=== PATIENT | female | born 1945 | race Caucasian/White ===

== ENCOUNTER 2023-01-26 09:58 | Outpatient (CLI) | payer MEDICARE, SELFPAY ==
--- NOTE | ~2023-01-26 | XR_ITS ---
EXAMINATION: XR foot LT min 3V DATE: 01/26/2023 10:48 INDICATION: Left foot pain TECHNIQUE: Dorsoplantar, lateral, and oblique views of the left foot were obtained. COMPARISON: None. FINDINGS: The bones are osteopenic which limits the sensitivity for fracture however none is seen. Th ere is moderate osteoarthritis of multiple interphalangeal joints. The soft tissues are unremarkable. IMPRESSION: 1. No acute osseous abnormality. Reviewed, dictated and finalized at location B.
--- NOTE | ~2023-01-26 | XR_ITS ---
EXAMINATION: XR ankle LT 2V DATE: 01/26/2023 10:48 INDICATION: Left foot pain. TECHNIQUE: 2 views of left ankle were obtained. COMPARISON: None. FINDINGS: Bone alignment is normal. No fracture. Joint spaces are normal. There are enthesophytes at the posterior and plantar aspects of calcaneal tuberosity. Ankle soft tissue swelling is noted. IMPRESSION: 1. No fracture. Reviewed, dictated and finalized at location A. IMPRESSION: 1. No fracture.
[2023-01-26 10:27] LABS: Basophils Absolute Auto 0.16 K/mm3 (0.00-0.10); Basophils Percent Auto 1.5 % (0.0-1.0); Eosinophils Absolute Auto 0.27 K/mm3 (0.02-0.50); Eosinophils Percent Auto 2.6 % (1.0-6.0); Hematocrit 49.5 % (35.0-42.0); Hemoglobin 15.6 g/dL (11.7-13.8); Immature Granulocyte Absolute 0.08 K/mm3 (0.00-0.00); Immature Granulocyte Percent A 0.8 % (0.0-0.0); Immature Platelet Fraction Pct 7.5 % (1.0-7.0); Lymphocytes Absolute Auto 2.28 K/mm3 (1.10-4.50); Lymphocytes Percent Auto 21.6 % (18.0-42.0); Mean Corpuscular HGB Conc 31.5 g/dL (32.0-36.0); Mean Corpuscular Hemoglobin 28.8 pg (27.0-31.0); Mean Corpuscular Volume 91.3 fL (78.0-102.0); Mean Platelet Volume 11.3 fl (9.2-11.8); Monocytes Absolute Auto 0.65 K/mm3 (0.10-0.90); Monocytes Percent Auto 6.1 % (2.0-11.0); Neutrophils Absolute Auto 7.1 K/mm3 (1.7-7.2); Neutrophils Percent Auto 67.4 % (50.0-70.0); Platelet Count Result 557 K/mm3 (150-420); Red Blood Count 5.42 M/mm3 (4.20-5.40); Red Cell Distribution Width 14.6 % (11.6-14.4); White Blood Count 10.6 K/mm3 (4.8-10.8)
[2023-01-26 10:41] LABS: Prothrombin Time 11.4 Seconds (9.50-12.10)
[2023-01-26 10:51] LABS: Alanine Aminotransferase 12 U/L (14-59); Albumin Level 4.2 g/dL (3.4-5.0); Alkaline Phosphatase 97 U/L (46-116); Anion Gap 9 mmol/L (8-16); Aspartate Amino Transferase 13 U/L (15-37); Bilirubin,Total 0.5 mg/dL (0.00-1.00); Blood Urea Nitrogen 37 mg/dL (7-18); Calcium 9.4 mg/dL (8.5-10.1); Carbon Dioxide 29 mmol/L (21-32); Chloride 103 mmol/L (98-108); Cholesterol 131 mg/dL (0-200); Estimated Glomerular Filt Rate 49; Glucose 107 mg/dL (70-99); HDL Direct 46 mg/dL (40-60); LDL Cholesterol Calculated 67 mg/dL (<130); Osmolality Calculated 300 mOsm/kg (285-295); Potassium 4.9 mmol/L (3.5-5.1); Sodium 141 mmol/L (136-145); Total Protein 7.3 g/dL (6.4-8.2); Triglycerides 89 mg/dL (0-150); Uric Acid 7.1 mg/dL (2.6-6.0)
[2023-01-26 11:25] LABS: Thyroid Stimulating Hormone 1.57 uIU/mL (0.36-3.74)
== END 2023-01-26 09:59 | disposition home or self-care (01) ==
LOC: CHSIMG 10:04
PROVIDERS: PCP Nurse Practitioner Family; Visit Provider Nurse Practitioner Family
DX: M79.672 Pain in left foot (principal); I10 Essential (primary) hypertension
CPT/HCPCS: 36415; 73600; 73630; 80053; 80061; 84443; 84550; 85025; 85055; 85610

== ENCOUNTER 2023-01-30 12:03 | Outpatient (CLI) | payer MEDICARE, SELFPAY ==
--- NOTE | ~2023-01-30 | US_ITS ---
EXAMINATION: US arterial ankle brachial ind DATE: 01/30/2023 13:00 INDICATION: Peripheral vascular disease. TECHNIQUE: Segmental pressures and plethysmographic and Doppler waveforms of the brachial and lower e xtremity arteries were obtained. COMPARISON: None. FINDINGS: Right and left brachial artery pressures of 154 mm Hg and 148 mm Hg, respectively, are concordant (no rmal difference <= 30 mmHg). The right ankle-brachial index (AKASH) is 0.78 (normal >= 0.9-1.0). The right great toe-brachial index (TBI) is 0.49 (normal >= 0.65). Arterial Doppler waveforms are biphasic at the ankle. The left AKASH is 0.43. The left TBI is not measured. Arterial Doppler waveforms are monophasic at the ankle. IMPRESSION: 1. Mildly decreased right AKASH and severely decreased left AKASH, consistent with arterial occlusive dis ease. Reviewed, dictated and finalized at location A. IMPRESSION: 1. Mildly decreased right AKASH and severely decreased left AKASH, consistent with arterial occlusive disease.
--- NOTE | ~2023-01-30 | US_ITS ---
EXAMINATION: US venous doppler [facility] DATE: 01/30/2023 12:59 INDICATION: Left calf swelling. Chronic peripheral venous insufficiency. TECHNIQUE: Grayscale ultrasound images without and with compression and Doppler ultrasound images of the left lower extremity veins were obtained. COMPARISON: None. FINDINGS: The visualized portions of left common femoral vein, profunda (deep) femoral vein, femoral vein, popl iteal vein, peroneal veins, posterior tibial veins, and greater saphenous vein outflow are patent. IMPRESSION: 1. No deep venous thrombosis. Reviewed, dictated and finalized at location A.
== END 2023-01-30 12:04 | disposition home or self-care (01) ==
LOC: CHSIMG 12:04
PROVIDERS: PCP Nurse Practitioner Family; Visit Provider Nurse Practitioner Family
DX: I87.2 Venous insufficiency (chronic) (peripheral) (principal); M79.662 Pain in left lower leg; M79.672 Pain in left foot; R22.42 Localized swelling, mass and lump, left lower limb; I10 Essential (primary) hypertension; I73.9 Peripheral vascular disease, unspecified
CPT/HCPCS: 93922; 93971

== ENCOUNTER 2023-05-11 10:26 | Outpatient (CLI) | payer MEDICARE, SELFPAY ==
[2023-05-11 10:39] LABS: Basophils Absolute Auto 0.11 K/mm3 (0.00-0.10); Eosinophils Absolute Auto 0.32 K/mm3 (0.02-0.50); Hematocrit 45.6 % (35.0-42.0); Hemoglobin 14.3 g/dL (11.7-13.8); Immature Granulocyte Absolute 0.06 K/mm3 (0.00-0.00); Immature Granulocyte Percent A 0.6 % (0.0-0.0); Lymphocytes Absolute Auto 2.25 K/mm3 (1.10-4.50); Lymphocytes Percent Auto 20.9 % (18.0-42.0); Mean Corpuscular HGB Conc 31.4 g/dL (32.0-36.0); Mean Corpuscular Hemoglobin 27.9 pg (27.0-31.0); Mean Corpuscular Volume 88.9 fL (78.0-102.0); Mean Platelet Volume 10.9 fl (9.2-11.8); Monocytes Absolute Auto 0.77 K/mm3 (0.10-0.90); Monocytes Percent Auto 7.2 % (2.0-11.0); Neutrophils Absolute Auto 7.2 K/mm3 (1.7-7.2); Neutrophils Percent Auto 67.3 % (50.0-70.0); Platelet Count Result 633 K/mm3 (150-420); Red Blood Count 5.13 M/mm3 (4.20-5.40); Red Cell Distribution Width 18.1 % (11.6-14.4); White Blood Count 10.8 K/mm3 (4.8-10.8)
[2023-05-11 11:00] LABS: Alanine Aminotransferase 46 U/L (14-59); Albumin Level 4.1 g/dL (3.4-5.0); Alkaline Phosphatase 140 U/L (46-116); Anion Gap 5 mmol/L (8-16); Aspartate Amino Transferase 21 U/L (15-37); Blood Urea Nitrogen 12 mg/dL (7-18); Calcium 9.4 mg/dL (8.5-10.1); Carbon Dioxide 34 mmol/L (21-32); Chloride 104 mmol/L (98-108); Estimated Glomerular Filt Rate 57; Glucose 118 mg/dL (70-99); Osmolality Calculated 296 mOsm/kg (285-295); Potassium 4.7 mmol/L (3.5-5.1); Sodium 143 mmol/L (136-145); Total Protein 6.9 g/dL (6.4-8.2); Uric Acid 5.5 mg/dL (2.6-6.0)
[2023-05-11 13:17] LABS: Hemoglobin A1C 6.3 % (<5.7)
== END 2023-05-11 10:27 | disposition home or self-care (01) ==
PROVIDERS: PCP Nurse Practitioner Family; Visit Provider Nurse Practitioner Family
DX: R73.01 Impaired fasting glucose (principal); M10.9 Gout, unspecified; I10 Essential (primary) hypertension; I77.9 Disorder of arteries and arterioles, unspecified
CPT/HCPCS: 36415; 80053; 83036; 84550; 85025; 85055

== ENCOUNTER 2024-02-17 04:07 | Emergency (ER) | payer MEDICARE, OTHER, SELFPAY ==
[2024-02-17 04:07] VITALS: BP 181/47; PULSE 76; RESP 18; TEMP 36.4; O2SAT 95
--- NOTE | 2024-02-17 04:22 | PC.NURSE ---
Dr Atkins at the bedside assessing wound to top of right foot
--- NOTE | 2024-02-17 04:30 | ED.LOWEXIN ---
HPI - Extremity Injury (Lower) General Chief Complaint: Extremity Injury, Lower Stated Complaint: vericose vein bleeding Time Seen by Provider: 02/17/24 04:17 Source: patient Mode of arrival: ambulatory Limitations: no limitations History of Present Illness HPI Narrative: 78-year-old female, smoker with a history of hypertension, dyslipidemia, gout presents to the ED with -- profuse bleeding from a varicose vein on the right foot. She accidentally scratched it 1 hour ago and started profusely bleeding. No other complaints. MD complaint: other ( Scratched a varicose vein) Onset (ago): hour(s) ( 1 hour ago) Place: home Relieving factors: nothing Exacerbating factors: nothing Other symptoms: none Related Data Allergies Allergy/AdvReac Type Severity Reaction Status Date / Time iodine Allergy Intermediate itching, Verified 05/30/23 14:58 rash latex Allergy Intermediate itching, Verified 05/30/23 14:58 rash nickel Allergy Intermediate itch Verified 05/30/23 14:58 wool Allergy Intermediate itching Verified 05/30/23 14:58 Review of Systems Review of Systems: All systems reviewed & are unremarkable except as noted in HPI and below Constitutional: Constitutional: Reports as per HPI and Reports no additional constitutional complaints Eyes: Eyes: Reports as per HPI and Reports no additional eye complaints ENT: Reports system reviewed and no additional complaints, except as documented and Reports as per HPI Cardiovascular: Cardiovascular: Reports as per HPI and Reports no additional cardiovascular complaints Respiratory: Respiratory: Reports as per HPI and Reports no additional respiratory complaints Gastrointestinal: Gastrointestinal: Reports no additional gastrointestinal complaints Genitourinary: Genitourinary: Reports no additional female genitourinary complaints and Reports as per HPI Musculoskeletal: Musculoskeletal: Reports no additional musculoskeletal complaints and Reports as per HPI Integumentary/Breasts: Comments: bleeding from varicose vein on the right foot Neurologic: Reports system reviewed and no additional complaints, except as documented Psychiatric: Psychiatric: Reports no additional psychiatric complaints and Reports as per HPI Endocrine: Endocrine: Reports no additional endocrine complaints and Reports as per HPI Hematologic/Lymphatic: Hematologic/Lymphatic: Reports no additional hematologic/lymphatic complaints and Reports as per HPI Allergic/Immunologic: Allergic/Immunologic: Reports no additional allergic/immunologic complaints and Reports as per HPI [facility] Past Medical History Medical History Dyslipidemia Elevated blood pressure reading Surgical History Surgical History H/O: section History of hysterectomy Social History Social History Smoking packs per day: 1 Smoking cigarettes per day: 20.0 Years smoked: 52 Smoking pack-years: 52.00 Smoking status: Former smoker Alcohol intake: current Alcohol use details: social Substance use: never Substance use type: does not use Lack of Transportation: No Lack of Food: Never True Current Housing: I Have Housing Concerned About Future Housing: No Difficulty Paying Gas/Electric Bills: No Difficulty Paying for Meds: No Currently Unemployed: No Education: High School Diploma/GED Difficulty w/ Childcare or Family Care: No Living arrangements: alone Occupation/Education: retired Gender identity (if verbalized by the patient): Female Exam Const: General: no acute distress Orientation/consciousness: patient oriented x3 HENMT: Head: normal to inspection Ears: external ears normal Face/Nose/Sinus: Normal external nose present Face and sinus: normal facial exam Mouth: Yes Normal oral and palatal mucosa present Th
[2024-02-17] MEDS: SILVER NITRATE (*SP) STICK 1 EACH TOPICAL (04:34)
[2024-02-17] MEDS: SILVER NITRATE (*SP) STICK 1 EACH (04:34)
--- NOTE | 2024-02-17 04:39 | PC.NURSE ---
iain Garcia, at the bedside cleaning dried blood off right foot.
--- NOTE | 2024-02-17 05:11 | PC.NURSE ---
bandaid placed over wound to top of right foot.
[2024-02-17 05:13] VITALS: BP 176/52; PULSE 78; RESP 18; O2SAT 96
== END 2024-02-17 05:13 | disposition home or self-care (01) ==
LOC: CHSED 04:50
PROVIDERS: Emergency Provider Internal Medicine Critical Care Medicine; PCP Nurse Practitioner Family
DX: I83.891 Varicose veins of right lower extremity with other complications (principal); I10 Essential (primary) hypertension; E11.9 Type 2 diabetes mellitus without complications; Z87.891 Personal history of nicotine dependence
CPT/HCPCS: 12001; 99283

== ENCOUNTER 2024-09-16 10:04 | Outpatient (CLI) | payer MEDICARE, SELFPAY ==
[2024-09-16 10:28] LABS: Basophils Absolute Auto 0.18 K/mm3 (0.00-0.10); Basophils Percent Auto 1.2 % (0.0-1.0); Eosinophils Absolute Auto 0.41 K/mm3 (0.02-0.50); Eosinophils Percent Auto 2.8 % (1.0-6.0); Hematocrit 57.9 % (35.0-42.0); Hemoglobin 17.5 g/dL (11.7-13.8); Immature Granulocyte Absolute 0.12 K/mm3 (0.00-0.00); Immature Granulocyte Percent A 0.8 % (0.0-0.0); Lymphocytes Absolute Auto 2.48 K/mm3 (1.10-4.50); Lymphocytes Percent Auto 16.7 % (18.0-42.0); Mean Corpuscular HGB Conc 30.2 g/dL (32-36); Mean Corpuscular Hemoglobin 24.3 pg (27.0-31.0); Mean Corpuscular Volume 80.5 fL (78.0-102.0); Mean Platelet Volume 10.9 fl (9.2-11.8); Monocytes Absolute Auto 0.84 K/mm3 (0.10-0.90); Monocytes Percent Auto 5.7 % (2.0-11.0); Neutrophils Absolute Auto 10.83 K/mm3 (1.70-7.20); Neutrophils Percent Auto 72.8 % (50.0-70.0); Red Blood Count 7.19 M/mm3 (4.20-5.40); Red Cell Distribution Width 20.3 % (11.6-14.4); White Blood Count 14.9 K/mm3 (4.8-10.8)
[2024-09-16 10:43] LABS: Platelet Count Result 767 K/mm3 (150-420)
[2024-09-16 11:09] LABS: Alanine Aminotransferase 33 U/L (14-59); Albumin Level 4.2 g/dL (3.4-5.0); Alkaline Phosphatase 137 U/L (46-116); Anion Gap 10 mmol/L (4-12); Aspartate Amino Transferase 24 U/L (15-37); Blood Urea Nitrogen 35 mg/dL (7-18); Calcium 9.6 mg/dL (8.5-10.1); Carbon Dioxide 30 mmol/L (21-32); Chloride 105 mmol/L (98-108); Cholesterol 89 mg/dL (0-200); Estimated Glomerular Filt Rate 47; Glucose 110 mg/dL (70-99); HDL Direct 56 mg/dL (40-60); LDL Cholesterol Calculated 24 mg/dL (<130); Osmolality Calculated 309 mOsm/kg (285-295); Potassium 5.4 mmol/L (3.5-5.1); Sodium 145 mmol/L (136-145); Thyroid Stimulating Hormone 1.94 uIU/mL (0.36-3.74); Total Protein 7.5 g/dL (6.4-8.2); Triglycerides 47 mg/dL (0-150)
--- OUTSIDE RECORDS SUMMARY | 2024-09-16 11:16 | XMS_ITS | Clinical Summary ---
Author Organization [facility] Address [address] [place] [address] Care Team Providers Care Sonogram Technician Name Role Phone Felix Fernando GARCIA Primary Care Provider [phone] Allergies No known active allergies Medications atorvastatin (LIPITOR) 80 mg tablet Take 1 tablet (80 mg total) by mouth nightly at bedtime 02/28/2023 Active clopidogreL (PLAVIX) 75 mg tablet Take 1 tablet (75 mg total) by mouth daily 02/28/2023 Active hydroCHLOROthia zide (HYDRODIURIL) 25 mg tablet Take 1 tablet (25 mg total) by mouth daily 03/20/2023 Active losartan (COZAAR) 50 mg tablet Take 1 tablet (50 mg total) by mouth 2 (two) times a day 02/13/2023 Active Active Problems Problem Noted Date Diagnosed Date Peripheral vascular disease, unspecified 023 Assessment & Plan (04/20/2023 7:55 AM OPERATIONS SUPERVISOR 2ND SHIFT): Overall asymptomatic with no evidence of claudication, rest pain or wounds. Needs no further workup. Assessment & Plan (03/23/2023 1:47 PM CDT): Impression: Patient denies any symptoms of claudication, ischemic rest pain or ulcerations. Patient underwent a lower extremity arterial Doppler an outside facility which reports biphasic waveforms to the right lower extremity and monophasic waveforms to left lower extremity. Left lower extremity is warm, well perfused with nonpalpable pulses. Plan: Recommend patient for follow-up in 2-3 weeks for re-evaluation with arterial Doppler. Primary hypertension 03/23/2023 Assessment & Plan (04/20/2023 7:55 AM OPERATIONS SUPERVISOR 2ND SHIFT): Stable continue hydrochlorothiazide 25 mg. Assessment & Plan (03/23/2023 1:46 PM CDT): Impression: Chronic stable. Plan: Continue hydrochlorothiazide and losartan Mixed hyperlipidemia 03/23/2023 Assessment & Plan (04/20/2023 7:55 AM OPERATIONS SUPERVISOR 2ND SHIFT): Stable continue Lipitor 80 mg. Assessment & Plan (03/23/2023 1:47 PM CDT): Impression: Chronic stable. Plan: Continue Lipitor Edema of left lower extremity 03/23/2023 Assessment & Plan (04/20/2023 7:55 AM OPERATIONS SUPERVISOR 2ND SHIFT): Strongly encouraged compression therapy. I have written a prescription for new compression stockings. Assessment & Plan (03/23/2023 1:49 PM CDT): Impression: Patient has edema to the left lower extremity with erythema extending from her ankle to mid anterior calf. Patient complains of pain on palpation. No open ulcerations are noted. Plan: Recommend compression therapy and leg elevation for edema control. -oral Bactrim sent to patient's pharmacy for treatment of soft tissue infection. Instructed patient to take medication with food as this may cause GI upset. Instructed patient to take oral antibiotics until completed. Patient voices understanding. Social History Tobacco Use Types Packs/Day Years Used Date Smoking Tobacco: Former Cigarettes 0.8 60 Tobacco Cessation:Counseling Given: No Personal Safety Answer Date Recorded Getting School Help Needed Not on file 08/12 Comments Unknown Sex and Gender Information Value Date Recorded Sex Assigned at Not on file Legal Sex Female 2:23 PM CDT Gender Identity Female 02/16/2023 12:55 PM CDT Sexual Orientation Not on file Obstetrics History Last Filed Vital Signs Vital Sign Reading Time Taken Comments Blood Pressure - - Pulse - - Temperature - - Respiratory Rate - - Oxygen Saturation - - Inhaled Oxygen Concentration - - Weight 68 kg (150 lb) 04/18/2023 10:00 AM OPERATIONS SUPERVISOR 2ND SHIFT Height 154.9 cm (5' 1 ) 04/18/2023 10:00 AM OPERATIONS SUPERVISOR 2ND SHIFT Body Mass Index 28.34 04/18/2023 10:00 AM OPERATIONS SUPERVISOR 2ND SHIFT Plan of Treatment Health Maintenance Due Date Last Done Comments Depression Screening 1946 Fall Risk Assessment 1945 Hepatitis C Screening 1946 Osteoporosis Screening-Bone Density Scan 1946 DTaP/Tdap/Td Vaccine (1 - Tdap) 1957 Hepatitis B Screening 1964 Pneumococcal vaccine 65+ (1 of 1 - PCV) 1996 Zoster Vaccine (1 of 2) 1996 Well Visit 65+ 2011 Influenza Vaccine (#1) 2024 Insurance [place] [id number] [place] [id number] Care Teams Sonogram Technician Relationship Specialty Start Date End Date Fernando Washington JOSE [address] [place] [address] PCP - General Nurse Practitioner 02/09/23
--- OUTSIDE RECORDS SUMMARY | 2024-09-16 11:16 | XMS_ITS | Referral Summary ---
Author Organization [facility] Address [address] [place] [address] Care Team Providers Care Farmworkers Name Role Phone Felix Fernando GARCIA Primary Care Provider [phone] Allergies No known active allergies Medications atorvastatin [...] 023 Assessment & Plan (04/20/2023 7:55 AM MAINTENANCE PORTER): Overall asymptomatic with no evidence of claudication, [...] 03/23/2023 Assessment & Plan (04/20/2023 7:55 AM MAINTENANCE PORTER): Stable continue hydrochlorothiazide 25 mg. Assessment & Plan (03/23/2023 1:46 PM CDT): Impression: Chronic stable. Plan: Continue hydrochlorothiazide and losartan Mixed hyperlipidemia 03/23/2023 Assessment & Plan (04/20/2023 7:55 AM MAINTENANCE PORTER): Stable continue Lipitor 80 mg. Assessment & Plan (03/23/2023 1:47 PM CDT): Impression: Chronic stable. Plan: Continue Lipitor Edema of left lower extremity 03/23/2023 Assessment & Plan (04/20/2023 7:55 AM MAINTENANCE PORTER): Strongly encouraged compression therapy. I have written [...] PM CDT Sexual Orientation Not on file Last Filed Vital Signs Vital Sign Reading Time Taken Comments Blood Pressure - - Pulse - - Temperature - - Respiratory Rate - - Oxygen Saturation - - Inhaled Oxygen Concentration - - Weight 68 kg (150 lb) 04/18/2023 10:00 AM MAINTENANCE PORTER Height 154.9 cm (5' 1 ) 04/18/2023 10:00 AM MAINTENANCE PORTER Body Mass Index 28.34 04/18/2023 10:00 AM MAINTENANCE PORTER Plan of Treatment Not on file Insurance MEDICARE ADVANTAGE MEDICARE ADVANTAGE [place] [id number] Care Teams Farmworkers Relationship Specialty Start Date End Date Fernando Washington NP [address] [place] [address] PCP - General Nurse Practitioner 02/09/23
[2024-09-16 15:50] LABS: Uric Acid 7.2 mg/dL (2.6-6.0)
== END 2024-09-16 10:05 | disposition home or self-care (01) ==
PROVIDERS: PCP Nurse Practitioner Family; Visit Provider Nurse Practitioner Family
DX: D75.1 Secondary polycythemia (principal); Z87.891 Personal history of nicotine dependence; R73.03 Prediabetes; E78.5 Hyperlipidemia, unspecified; Z87.39 Personal history of other diseases of the musculoskeletal system and connective tissue
CPT/HCPCS: 36415; 80053; 80061; 81270; 83036; 84443; 84550; 85025

== ENCOUNTER 2024-09-19 08:31 | Outpatient (CLI) | payer MEDICARE, SELFPAY ==
--- OUTSIDE RECORDS SUMMARY | 2024-09-19 08:39 | XMS_ITS | Referral Summary ---
Author Organization [facility] Address [address] [place] [address] Care Team Providers Care Dairy Technician Name Role Phone Felix Fernando GARCIA Primary Care Provider [phone] Allergies No known active allergies Medications atorvastatin [...] 023 Assessment & Plan (04/20/2023 7:55 AM ENERGY TECHNICIAN): Overall asymptomatic with no evidence of claudication, [...] 03/23/2023 Assessment & Plan (04/20/2023 7:55 AM ENERGY TECHNICIAN): Stable continue hydrochlorothiazide 25 mg. Assessment & Plan (03/23/2023 1:46 PM CDT): Impression: Chronic stable. Plan: Continue hydrochlorothiazide and losartan Mixed hyperlipidemia 03/23/2023 Assessment & Plan (04/20/2023 7:55 AM ENERGY TECHNICIAN): Stable continue Lipitor 80 mg. Assessment & Plan (03/23/2023 1:47 PM CDT): Impression: Chronic stable. Plan: Continue Lipitor Edema of left lower extremity 03/23/2023 Assessment & Plan (04/20/2023 7:55 AM ENERGY TECHNICIAN): Strongly encouraged compression therapy. I have written [...] 68 kg (150 lb) 04/18/2023 10:00 AM ENERGY TECHNICIAN Height 154.9 cm (5' 1 ) 04/18/2023 10:00 AM ENERGY TECHNICIAN Body Mass Index 28.34 04/18/2023 10:00 AM ENERGY TECHNICIAN Plan of Treatment Not on file Insurance MEDICARE ADVANTAGE [facility] MED[facility] Address: [place] [id number] [place] [address] MEDICARE ADVANTAGE [facility] MEDICARE Address: [address] [address] [place] [id number] Care Teams Dairy Technician Relationship Specialty Start Date End Date Fernando Washington NP [address] [place] [address] PCP - General Nurse Practitioner 02/09/23
--- OUTSIDE RECORDS SUMMARY | 2024-09-19 08:39 | XMS_ITS | Clinical Summary ---
Author Organization [facility] Address [address] [place] [address] Care Team Providers Care Grid Trimmer Name Role Phone Felix Fernando GARCIA Primary Care Provider [phone] Allergies No known active allergies Medications atorvastatin [...] 023 Assessment & Plan (04/20/2023 7:55 AM GRINDER CARBON PLANT): Overall asymptomatic with no evidence of claudication, [...] 03/23/2023 Assessment & Plan (04/20/2023 7:55 AM GRINDER CARBON PLANT): Stable continue hydrochlorothiazide 25 mg. Assessment & Plan (03/23/2023 1:46 PM CDT): Impression: Chronic stable. Plan: Continue hydrochlorothiazide and losartan Mixed hyperlipidemia 03/23/2023 Assessment & Plan (04/20/2023 7:55 AM GRINDER CARBON PLANT): Stable continue Lipitor 80 mg. Assessment & Plan (03/23/2023 1:47 PM CDT): Impression: Chronic stable. Plan: Continue Lipitor Edema of left lower extremity 03/23/2023 Assessment & Plan (04/20/2023 7:55 AM GRINDER CARBON PLANT): Strongly encouraged compression therapy. I have written [...] 68 kg (150 lb) 04/18/2023 10:00 AM GRINDER CARBON PLANT Height 154.9 cm (5' 1 ) 04/18/2023 10:00 AM GRINDER CARBON PLANT Body Mass Index 28.34 04/18/2023 10:00 AM GRINDER CARBON PLANT Plan of Treatment Health Maintenance Due Date Last Done Comments Depression Screening 1946 Fall Risk Assessment 1946 Hepatitis C Screening 1946 Osteoporosis Screening-Bone Density Scan 1946 DTaP/Tdap/Td Vaccine (1 - Tdap) 1957 Hepatitis B Screening 1964 Pneumococcal vaccine 65+ (1 of 1 - PCV) 1996 Zoster Vaccine (1 of 2) 1996 Well Visit 65+ 2011 Influenza Vaccine (#1) 2024 Insurance [place] [id number] [place] [id number] Care Teams Grid Trimmer Relationship Specialty Start Date End Date Fernando Washington JOSE [address] [place] [address] PCP - General Nurse Practitioner 02/09/23
--- NOTE | 2024-09-19 08:48 | ECG_ITS ---
Test Date: 2024-09-19 09:27:22 Measurements Intervals [place] Rate: 58 P: 68 VA: 164 QRS: 52 QRSD: 94 T: 57 QT: 451 QTc: 443 Interpretive Statements SINUS BRADYCARDIA WITH OCCASIONAL SUPRAVENTRICULAR PREMATURE COMPLEXES BORDERLINE ECG No previous ECG available for comparison Electronically Signed On 09-19-2024 10:35:21 CDT by Damon Chavez D.O.
[2024-09-19 09:31] LABS: Iron 32 ug/dL (50-170); Percent Iron Saturation 8 % (12-57)
[2024-09-19 09:44] LABS: Potassium 5.4 mmol/L (3.5-5.1)
== END 2024-09-19 08:32 | disposition home or self-care (01) ==
LOC: CHSLAB 08:32
PROVIDERS: PCP Nurse Practitioner Family; Visit Provider Nurse Practitioner Family
DX: D75.1 Secondary polycythemia (principal); E87.5 Hyperkalemia; R00.1 Bradycardia, unspecified
CPT/HCPCS: 36415; 83540; 83550; 84132; 93005

== ENCOUNTER 2024-10-17 08:52 | Outpatient (CLI) | payer MEDICARE, SELFPAY ==
--- OUTSIDE RECORDS SUMMARY | 2024-10-17 08:55 | XMS_ITS | Clinical Summary ---
Author Organization [facility] Address [address] [facility] [place] [address] Care Team Providers Care Supervisor Finishing Name Role Phone Unavailable Primary Care Provider Unavailabl e Social History Tobacco Use Types Packs/Day Years Used Date Smoking Tobacco: Never Assessed Comments Unknown Sex and Gender Information Value Date Recorded Sex Assigned at Not on file Legal Sex Female 9:30 AM CDT Gender Identity Not on file Sexual Orientation Not on file Plan of Treatment Upcoming Encounters Date Type Department Care Team (Late st Contact Info) Description 10/31/2024 2:30 PM CDT Office Visit [facility] Oncology and Hematology - J[address] [facility] [address] [address] Bam Moore MD [address] [facility] [address] [place] [address] Health Maintenance Due Date Last Done Comments DTAP/TDAP/TD VACCINES (1 - Tdap) 1965 PNEUMOCOCCAL VACCINE 50+ YEARS (1 of 1 - PCV) 04/13/19 96 ZOSTER VACCINE (1 of 2) 1996 OSTEOPOROSIS SCREENING 2011 RSV VACCINE (60+ or ) (1 - 1-dose 75+ series) 2021 INFLUENZA VACCINE (#1) 2024 Insurance [facility] [id number]
--- OUTSIDE RECORDS SUMMARY | 2024-10-17 08:55 | XMS_ITS | Referral Summary ---
Author Organization [facility] Address [address] [place] [address] Care Team Providers Care Dragline Mechanic Name Role Phone Felix Fernando GARCIA Primary Care Provider [phone] Allergies No known active allergies Medications atorvastatin [...] 023 Assessment & Plan (04/20/2023 7:55 AM SOFA COVER INSPECTOR): Overall asymptomatic with no evidence of claudication, [...] 03/23/2023 Assessment & Plan (04/20/2023 7:55 AM SOFA COVER INSPECTOR): Stable continue hydrochlorothiazide 25 mg. Assessment & Plan (03/23/2023 1:46 PM CDT): Impression: Chronic stable. Plan: Continue hydrochlorothiazide and losartan Mixed hyperlipidemia 03/23/2023 Assessment & Plan (04/20/2023 7:55 AM SOFA COVER INSPECTOR): Stable continue Lipitor 80 mg. Assessment & Plan (03/23/2023 1:47 PM CDT): Impression: Chronic stable. Plan: Continue Lipitor Edema of left lower extremity 03/23/2023 Assessment & Plan (04/20/2023 7:55 AM SOFA COVER INSPECTOR): Strongly encouraged compression therapy. I have written [...] 68 kg (150 lb) 04/18/2023 10:00 AM SOFA COVER INSPECTOR Height 154.9 cm (5' 1 ) 04/18/2023 10:00 AM SOFA COVER INSPECTOR Body Mass Index 28.34 04/18/2023 10:00 AM SOFA COVER INSPECTOR Plan of Treatment Not on file Insurance MEDICARE ADVANTAGE MEDICARE ADVANTAGE [place] [id number] Care Teams Dragline Mechanic Relationship Specialty Start Date End Date Fernando Washington NP [address] [place] [address] PCP - General Nurse Practitioner 02/09/23
--- OUTSIDE RECORDS SUMMARY | 2024-10-17 08:55 | XMS_ITS | Clinical Summary ---
Author Organization [facility] Address [address] [place] [address] Care Team Providers Care Coin Purse Framer Name Role Phone Felix Fernando GARCIA Primary Care Provider [phone] Allergies No known active allergies Medications atorvastatin [...] 023 Assessment & Plan (04/20/2023 7:55 AM BLOCK MAKING MACHINE OPERATOR): Overall asymptomatic with no evidence of claudication, [...] 03/23/2023 Assessment & Plan (04/20/2023 7:55 AM BLOCK MAKING MACHINE OPERATOR): Stable continue hydrochlorothiazide 25 mg. Assessment & Plan (03/23/2023 1:46 PM CDT): Impression: Chronic stable. Plan: Continue hydrochlorothiazide and losartan Mixed hyperlipidemia 03/23/2023 Assessment & Plan (04/20/2023 7:55 AM BLOCK MAKING MACHINE OPERATOR): Stable continue Lipitor 80 mg. Assessment & Plan (03/23/2023 1:47 PM CDT): Impression: Chronic stable. Plan: Continue Lipitor Edema of left lower extremity 03/23/2023 Assessment & Plan (04/20/2023 7:55 AM BLOCK MAKING MACHINE OPERATOR): Strongly encouraged compression therapy. I have written [...] 68 kg (150 lb) 04/18/2023 10:00 AM BLOCK MAKING MACHINE OPERATOR Height 154.9 cm (5' 1 ) 04/18/2023 10:00 AM BLOCK MAKING MACHINE OPERATOR Body Mass Index 28.34 04/18/2023 10:00 AM BLOCK MAKING MACHINE OPERATOR Plan of Treatment Health Maintenance Due Date Last Done Comments Depression Screening 1946 Fall Risk Assessment 1946 Hepatitis C Screening 1946 Osteoporosis Screening-Bone Density Scan 1946 DTaP/Tdap/Td Vaccine (1 - Tdap) 1957 Hepatitis B Screening 1964 Pneumococcal vaccine 65+ (1 of 1 - PCV) 1996 Zoster Vaccine (1 of 2) 1996 Well Visit 65+ 2011 Influenza Vaccine (Season Ended) 2025 Insurance [place] [id number] [place] [id number] Care Teams Coin Purse Framer Relationship Specialty Start Date End Date Fernando Washington JOSE [address] [place] [address] PCP - General Nurse Practitioner 02/09/23
[2024-10-17 09:38] LABS: Basophils Absolute Auto 0.16 K/mm3 (0.00-0.10); Basophils Percent Auto 1.2 % (0.0-1.0); Eosinophils Absolute Auto 0.42 K/mm3 (0.02-0.50); Eosinophils Percent Auto 3.1 % (1.0-6.0); Hematocrit 57.7 % (35.0-42.0); Hemoglobin 16.9 g/dL (11.7-13.8); Immature Granulocyte Absolute 0.14 K/mm3 (0.00-0.00); Immature Platelet Fraction Pct 6.3 % (1.0-7.0); Lymphocytes Absolute Auto 2.32 K/mm3 (1.10-4.50); Lymphocytes Percent Auto 16.9 % (18.0-42.0); Mean Corpuscular HGB Conc 29.3 g/dL (32-36); Mean Corpuscular Volume 82.1 fL (78.0-102.0); Mean Platelet Volume 11.3 fl (9.2-11.8); Monocytes Absolute Auto 0.89 K/mm3 (0.10-0.90); Monocytes Percent Auto 6.5 % (2.0-11.0); Neutrophils Absolute Auto 9.83 K/mm3 (1.70-7.20); Neutrophils Percent Auto 71.3 % (50.0-70.0); Platelet Count Result 676 K/mm3 (150-420); Red Blood Count 7.03 M/mm3 (4.20-5.40); Red Cell Distribution Width 19.5 % (11.6-14.4); White Blood Count 13.8 K/mm3 (4.8-10.8)
[2024-10-17 10:24] LABS: Alanine Aminotransferase 27 U/L (6-35); Albumin Level 4.3 g/dL (3.5-5.1); Alkaline Phosphatase 111 U/L (38-126); Anion Gap 6 mmol/L (4-12); Aspartate Amino Transferase 32 U/L (14-36); Bilirubin,Total 0.9 mg/dL (0.2-1.3); Blood Urea Nitrogen 25 mg/dL (7-17); Calcium 9.3 mg/dL (8.4-10.2); Carbon Dioxide 28 mmol/L (22-30); Chloride 107 mmol/L (98-107); Estimated Glomerular Filt Rate > 60; Glucose 93 mg/dL (65-110); Osmolality Calculated 296 mOsm/kg (285-295); Potassium 5.5 mmol/L (3.4-5.0); Sodium 141 mmol/L (137-145); Total Protein 6.6 g/dL (6.3-8.2)
== END 2024-10-17 08:53 | disposition home or self-care (01) ==
LOC: CHSLAB 08:53
PROVIDERS: PCP Nurse Practitioner Family; Visit Provider Nurse Practitioner Family
DX: E87.5 Hyperkalemia (principal); R79.89 Other specified abnormal findings of blood chemistry
CPT/HCPCS: 36415; 80053; 85025; 85055

== ENCOUNTER 2024-11-07 08:49 | Outpatient (CLI) | payer MEDICARE, SELFPAY ==
--- OUTSIDE RECORDS SUMMARY | 2024-11-07 08:51 | XMS_ITS | Clinical Summary ---
Author Organization [facility] Address [address] [place] [address] Care Team Providers Care Record Changer Assembler Name Role Phone Felix Fernando GARCIA Primary Care Provider [phone] Allergies No known active allergies Medications atorvastatin [...] 023 Assessment & Plan (04/20/2023 7:55 AM SPEECH CORRECTION CONSULTANT): Overall asymptomatic with no evidence of claudication, [...] 03/23/2023 Assessment & Plan (04/20/2023 7:55 AM SPEECH CORRECTION CONSULTANT): Stable continue hydrochlorothiazide 25 mg. Assessment & Plan (03/23/2023 1:46 PM CDT): Impression: Chronic stable. Plan: Continue hydrochlorothiazide and losartan Mixed hyperlipidemia 03/23/2023 Assessment & Plan (04/20/2023 7:55 AM SPEECH CORRECTION CONSULTANT): Stable continue Lipitor 80 mg. Assessment & Plan (03/23/2023 1:47 PM CDT): Impression: Chronic stable. Plan: Continue Lipitor Edema of left lower extremity 03/23/2023 Assessment & Plan (04/20/2023 7:55 AM SPEECH CORRECTION CONSULTANT): Strongly encouraged compression therapy. I have written [...] 68 kg (150 lb) 04/18/2023 10:00 AM SPEECH CORRECTION CONSULTANT Height 154.9 cm (5' 1) 04/18/2023 10:00 AM SPEECH CORRECTION CONSULTANT Body Mass Index 28.34 04/18/2023 10:00 AM SPEECH CORRECTION CONSULTANT Plan of Treatment Health Maintenance Due Date Last Done Comments Depression Screening 1946 Fall Risk Assessment 1946 Hepatitis C Screening 1946 Osteoporosis Screening-Bone Density Scan 1946 DTaP/Tdap/Td Vaccine (1 - Tdap) 1957 Hepatitis B Screening 1964 Pneumococcal vaccine 65+ (1 of 1 - PCV) 1996 Zoster Vaccine (1 of 2) 1996 Well Visit 65+ 2011 Influenza Vaccine (Season Ended) [address] [facility] [facility] MEDICARE Address: [facility] [address] [place] [id number] [facility] MEDICARE Address: [address] [address] [place] [id number] Care Teams Record Changer Assembler Relationship Specialty Start Date End Date Fernando Washington JOSE [address] [place] [address] PCP - General Nurse Practitioner 02/09/23
--- OUTSIDE RECORDS SUMMARY | 2024-11-07 08:51 | XMS_ITS | Referral Summary ---
Author Organization [facility] Address [address] [place] [address] Care Team Providers Care Manual Lathe Machinist Name Role Phone Felix Fernando GARCIA Primary Care Provider [phone] Allergies No known active allergies Medications atorvastatin [...] 023 Assessment & Plan (04/20/2023 7:55 AM MEDICAL FRONT DESK SPECIALIST): Overall asymptomatic with no evidence of claudication, [...] 03/23/2023 Assessment & Plan (04/20/2023 7:55 AM MEDICAL FRONT DESK SPECIALIST): Stable continue hydrochlorothiazide 25 mg. Assessment & Plan (03/23/2023 1:46 PM CDT): Impression: Chronic stable. Plan: Continue hydrochlorothiazide and losartan Mixed hyperlipidemia 03/23/2023 Assessment & Plan (04/20/2023 7:55 AM MEDICAL FRONT DESK SPECIALIST): Stable continue Lipitor 80 mg. Assessment & Plan (03/23/2023 1:47 PM CDT): Impression: Chronic stable. Plan: Continue Lipitor Edema of left lower extremity 03/23/2023 Assessment & Plan (04/20/2023 7:55 AM MEDICAL FRONT DESK SPECIALIST): Strongly encouraged compression therapy. I have written [...] 68 kg (150 lb) 04/18/2023 10:00 AM MEDICAL FRONT DESK SPECIALIST Height 154.9 cm (5' 1) 04/18/2023 10:00 AM MEDICAL FRONT DESK SPECIALIST Body Mass Index 28.34 04/18/2023 10:00 AM MEDICAL FRONT DESK SPECIALIST Plan of Treatment Not on file Insurance MEDICARE ADVANTAGE MEDICARE ADVANTAGE [place] [id number] Care Teams Manual Lathe Machinist Relationship Specialty Start Date End Date Fernando Washington NP [address] [place] [address] PCP - General Nurse Practitioner 02/09/23
[2024-11-07 09:19] LABS: Potassium 4.7 mmol/L (3.4-5.0)
[2024-11-07 09:20] LABS: Creatine Kinase 29 U/L (30-135)
== END 2024-11-07 08:50 | disposition home or self-care (01) ==
LOC: CHSLAB 08:49
PROVIDERS: PCP Nurse Practitioner Family; Visit Provider Nurse Practitioner Family
DX: E79.0 Hyperuricemia without signs of inflammatory arthritis and tophaceous disease (principal); E87.5 Hyperkalemia
CPT/HCPCS: 36415; 82550; 84132; 84550